=== PATIENT | male | born 1960 | race Caucasian/White ===

== ENCOUNTER 2017-01-03 08:42 | Inpatient (IN) | payer OTHER ==
[2016-12-19 13:10] VITALS: BMI 27.0
--- NOTE | 2016-12-19 13:45 | PAT Medication Instructions ---
Service Date Dec 19, 2016. Current Home Medication List Hydrocodon/Acetaminophen 5MG/300MG (Vicodin (5MG/300MG)), 1-2 TAB PO Q6H PRN for Pain Metoprolol Tartrate (Lopressor) (Lopressor), 50 MG PO BID ["Stomach Pills" ], Unknown Dose Medication Instructions For Your Scheduled Surgery - Hold the following medications the morning of surgery: [OTC "Stomach Pills" ], Unknown Dose - Take the following medications the morning of surgery with a sip of water: Hydrocodon/Acetaminophen 5MG/300MG (Vicodin (5MG/300MG)), 1-2 TAB PO Q6H PRN for Pain (okay to take up to 4 hours prior to surgery if needed) Metoprolol Tartrate (Lopressor) (Lopressor), 50 MG PO BID - Take the following medications as scheduled the night before surgery: Hydrocodon/Acetaminophen 5MG/300MG (Vicodin (5MG/300MG)), 1-2 TAB PO Q6H PRN for Pain Metoprolol Tartrate (Lopressor) (Lopressor), 50 MG PO BID If you have any questions please call us at [phone] (Salina Eric PA-C) or [phone] or [phone]
--- NOTE | 2016-12-19 14:14 | DIAGNOSTIC IMAGING REPORT ---
CHEST PREADMISSION(PA/LAT) CLINICAL HISTORY: PAT preoperative evaluation COMPARISON STUDY: No previous studies for comparison. FINDINGS: The bones soft tissues and hemidiaphragms are normal. The cardiomediastinal silhouette is normal. The lungs are clear. The pulmonary vasculature is normal. IMPRESSION: Negative chest. Electronically signed by: Manuel Coles M.D. 12/19/2016 2:12 PM Dictated Date/Time: 12/19/2016 2:11 PM
[2016-12-19 14:19] LABS: BASO % 0.2 %; BASO ABS # 0.02 K/uL (0-0.2); COMPLETE YES; EOS % 0.8 %; HEMATOCRIT 48.5 % (42-52); IG% 0.2 %; LYMPH % 18.7 %; LYMPH ABS # 1.72 K/uL (1.2-3.4); MEAN CELL VOLUME 91.5 fL (80-100); MEAN CORPUSCULAR HEMOGLOBIN 31.9 pg (25-34); MEAN CORPUSCULAR HGB CONC 34.8 g/dl (32-36); MEAN PLATELET VOLUME 11.1 fL (7.4-10.4); MONO % 7.4 %; NEUT % 72.7 %; PLATELET COUNT 284 K/uL (130-400); WHITE BLOOD COUNT 9.19 K/uL (4.8-10.8)
[2016-12-19 14:27] LABS: URINE APPEARANCE CLEAR (CLEAR); URINE COLOR DK YELLOW; URINE NITRITE NEG (NEG); URINE SPECIFIC GRAVITY 1.034 (1.000-1.030); UROBILINOGEN NEG (NEG)
[2016-12-19 14:29] LABS: MANUAL MICROSCOPIC REQUIRED? NO; REVIEW REQ? NO; URINE BILIRUBIN NEG (NEG)
[2016-12-19 14:38] LABS: PARTIAL THROMBOPLASTIN RATIO 1.1; PROTHROMBIN TIME (PATIENT) 10.4 SECONDS (9.0-12.0)
[2016-12-19 15:35] LABS: BUN/CREATININE RATIO 13.8 (10-20); CALCIUM 9.3 mg/dl (8.5-10.1); CREATININE 0.81 mg/dl (0.60-1.40); POTASSIUM 3.9 mmol/L (3.5-5.1)
--- NOTE | 2017-01-02 12:51 | HISTORY & PHYSICAL EXAMINATION ---
DATE OF ADMISSION: 01/03/2017 Rupert is being preop'd for a posterior approach lumbar spine decompression, fusion, instrumentation and PLIF procedures L5-S1, L4-L5 and L3-L4. He is a delightful gentleman with significant back and lower extremity difficulty, weakness, numbness, tingling with paresthesias to his feet. He has tried an assortment of conservative measures, they have failed. PAST MEDICAL HISTORY: Hypertension. PAST SURGICAL HISTORY: Negative. ALLERGIES: Negative. CURRENT MEDICATIONS: Tramadol, metoprolol. FAMILY HISTORY: Negative for heart disease, stroke, DVT, carcinoma. REVIEW OF SYSTEMS: Positive for joint pain, headaches, and wheezing. Denies chest pain, shortness of breath. No nausea, vomiting. No urgency, frequency, dysuria. Denies any incontinence of bowel and bladder. Denies any HEENT problems. OBJECTIVE: GENERAL: He is 5 feet 8 inches, 175 pounds. He is in no terrible distress. He is alert, oriented and he is comfortable. VITAL SIGNS: Blood pressure 130/80, pulse of 80, respiratory rate 16, temperature 97.4. HEENT: Pupils react to light and accommodation. Ear, nose and throat clear. CARDIAC: Normal S1, no S3. LUNGS: Clear to auscultation. SKIN: No skin rashes, lesions or breakdown. EXTREMITIES: He does have some decreased patellar knee jerk reflexes, loss of motor strength. He is in a leaning forward position, he is in kyphosis. Loss of extension of his spine, loss of normal lordosis of spine as well. He does have pain with straight leg raising, but no balance, equilibrium or upper motor neuron issues. Images reviewed demonstrate severe spondylosis and stenosis with instability and loss of lordosis L3-4, L4-5 lumbar spine. DISPOSITION: Includes surgery for a posterior approach lumbar spine decompression, first the nerve roots; posterior lumbar interbody fusion, L3-4, L4-5 and L5-S1.
[~2017-01-03] VITALS: Ht 172.7 cm; Wt 80.9 kg
[2017-01-03] VITALS (10 sets, daily range): BP systolic 76–164; BP diastolic 81–122; PULSE 68–102; TEMP 36.2–37; O2SAT 94–99; Ht 172.7 cm; Wt 80.9 kg
[~2017-01-03 08:42] MED LIST: CEFAZOLIN 2000 MG/60 ML D5W 60 ML IV SCH; HYDR-3419 PO; LACTATED RINGER'S 1000ML IV SCH; METO50TA16 PO; NSS 1000ML IV SCH; [UNRECOGNIZED DRUG - REMARK]
[2017-01-03] MEDS ORDERED: IBUP-1450 PO (09:19)
[2017-01-03] MEDS ORDERED: MIDAZOLAM HCL 1 MG/ML 2ML VIAL ONE (09:22)
[2017-01-03] MEDS ORDERED: ROCURONIUM BROMIDE 10 MG/ML 5 ML VIAL ONE (09:22)
[2017-01-03] MEDS ORDERED: LIDOCAINE HCL 2% 2 ML VIAL (20MG/ML) ONE (09:22)
[2017-01-03] MEDS ORDERED: PROPOFOL IV EMULSION 10 MG/ML 20 ML VIAL IV ONE (09:22)
[2017-01-03] MEDS ORDERED: FENTANYL CITRATE INJ 50 MCG/1 ML 2 ML VIAL ONE (09:22)
[2017-01-03] MEDS ORDERED: LACTATED RINGER'S 1000ML 1,000 ML IV PRN (09:41)
[2017-01-03] MEDS ORDERED: MoRPHine SULFATE 10 MG/ML CARP/VIAL IV PRN (09:45)
[2017-01-03] MEDS ORDERED: ONDANSETRON INJ 2 MG/ML 2 ML VIAL IV PRN ×2 (09:45→13:30)
[2017-01-03] MEDS ORDERED: KETAMINE HCL INJ 50 MG/ML 10 ML VIAL ONE (10:04)
[2017-01-03] MEDS ORDERED: GELATIN SPONGE SZ 100 ONE ×3 (10:10→12:33)
[2017-01-03] MEDS ORDERED: THROMBIN FOR SOLN 20000 UNIT KIT ONE (10:11)
[2017-01-03] MEDS ORDERED: BACITRACIN 50000 UNIT VIAL ONE (10:11)
[2017-01-03] MEDS ORDERED: BUPIVACAINE/EPINEPHRINE 0.5% MPF 1:200,000 30 ML VIAL ONE (10:11)
[2017-01-03] MEDS ORDERED: VANCOMYCIN HCL 1000MG/20ML VIAL ONE (10:11)
--- NOTE | 2017-01-03 10:13 | History & Physical Bridge Note ---
H&P Re-Evaluation Bridge Note: I have examined the patient, reviewed the History & Physical and in the interval since the performance of the History & Physical I have noted the following changes of clinical significance: No changes noted
[2017-01-03] MEDS ORDERED: DEXAMETHASONE SOD INJ 4 MG/ML VIAL ONE (11:07)
[2017-01-03] MEDS ORDERED: ONDANSETRON INJ 2 MG/ML 2 ML VIAL ONE (11:07)
[2017-01-03] MEDS ORDERED: HYDROmorphone INJ 2 MG/ML SYR/VIAL ONE (11:08)
[2017-01-03] MEDS ORDERED: EpHEDrine SULFATE INJ 50 MG/ML AMP ONE (12:01)
--- NOTE | 2017-01-03 12:59 | DIAGNOSTIC IMAGING REPORT ---
INTRAOPERATIVE RADIOGRAPH CLINICAL HISTORY: L3-S1 spinal fusion. Fluoroscopy time: 11 seconds. FINDINGS: A single spot fluoroscopic view of the lumbar spine is presented. There is evidence of discectomy at L3-L4 and L4-L5. Interpedicular screws are present at L3, L4, and L5. The orthopedic hardware is intact as imaged. IMPRESSION: Intraoperative image from lumbar spinal fusion as above. Electronically signed by: Justin Worthington M.D. 01/03/2017 12:56 PM Dictated Date/Time: 01/03/2017 12:55 PM
[2017-01-03] MEDS ORDERED: SODIUM CHLORIDE 0.9% 1000ML 1,000 ML IV SCH (13:22)
--- NOTE | 2017-01-03 13:25 | [facility] Post Operative Brief Note ---
Immediate Operative Summary Operative Date Jan 03, 2017. Pre-Operative Diagnosis Severe Spondylosis and Stenosis with Instability and Loss of Lordosis; L3-4, L4-5 Lumbar Spine Post-Operative Diagnosis Severe Spondylosis and Stenosis with Instability and Loss of Lordosis; L3-4, L4-5 Lumbar Spine Procedure(s) Performed L3-L4, L4-L5, Posterior Lumbar Interbody. Decompression L3-s1 Surgeon Dr. Dipesh Wright Appliance Fixer Surgeon(s) Benjy Saleem PA-C Estimated Blood Loss 300ML Findings stenosis and deformity Specimens none per surgeon Dr. Dipesh Wright Disposition Recovery Room / PACU
[2017-01-03] MEDS: FENTANYL CITRATE INJ 50 MCG/1 ML 2 ML VIAL IV PRN ×2 (13:28→13:33)
[2017-01-03] MEDS ORDERED: HYDROmorphone HCL 0.5MG/ML 50 ML CASSETTE IV PRN (13:30)
[2017-01-03] MEDS ORDERED: METOCLOPRAMIDE HCL INJ 5 MG/ML 2 ML VIAL IV PRN (13:30)
[2017-01-03] MEDS ORDERED: MAGNESIUM HYDROXIDE SUSP 30 ML UDC PO PRN (13:30)
[2017-01-03] MEDS ORDERED: LORAZEPAM INJ 1 MG in SYRINGE 0 ML IV PRN (13:30)
[2017-01-03] MEDS ORDERED: LORAZEPAM 1 MG TAB PO PRN (13:30)
[2017-01-03] MEDS ORDERED: PROMETHAZINE HCL INJ 12.5 MG in SODIUM CHLORIDE 0.9% 50ML 50 ML IV PRN (13:30)
[2017-01-03] MEDS ORDERED: ACETAMINOPHEN 325 MG TAB PO PRN (13:30)
[2017-01-03] MEDS ORDERED: NALOXONE HCL 0.4 MG/1 ML VIAL/CARP IV PRN (13:30)
[2017-01-03] MEDS ORDERED: HYDROmorphone HCL 0.5MG/ML 50 ML CASSETTE ONE (13:38)
[2017-01-03] MEDS: HYDROmorphone INJ 1 MG/ML SYR IV PRN ×2 (13:53→13:58)
--- NOTE | 2017-01-03 14:05 | Anesthesiology Progress Note ---
Anesthesia Post Op Note Date & Time Jan 03, 2017 at 14:04 Vital Signs Pain Intensity: 5.0 Vital Signs Past 12 Hours Date Time Temp Pulse Resp B/P Pulse Ox O2 Delivery O2 Flow Rate FiO2 01/03/17 13:55 36.3 89 16 140/105 97 Nasal Cannula 3 01/03/17 13:45 85 16 132/101 99 Nasal Cannula 3 01/03/17 13:35 80 16 137/96 100 Mask 10 01/03/17 13:25 36.0 88 16 135/101 100 Mask 10 01/03/17 09:26 37.0 75 18 76/122 97 Room Air 01/03/17 09:25 37.0 76 18 164/121 Notes Mental Status: alert / awake / arousable, participated in evaluation Pt Amnestic to Procedure: Yes Nausea / Vomiting: adequately controlled Pain: adequately controlled Airway Patency, RR, SpO2: stable & adequate BP & HR: stable & adequate Hydration State: stable & adequate Anesthetic Complications: no major complications apparent Pt doing well.
--- NOTE | 2017-01-03 14:27 | OPERATIVE REPORT ---
DATE OF OPERATION: 01/03/2017 PREOPERATIVE DIAGNOSIS: Flat back deformity lumbar spine, lack of lordosis, also severe stenosis of the spine L3 to the sacrum. POSTOPERATIVE DIAGNOSIS: Same. PROCEDURE: 1. Decompression laminectomy L3-L4, L4-L5, L5-S1. 2. Pedicle screw instrumentation bilaterally at L3, L4, L5. 3. Posterior lumbar interbody fusion L3-L4 and L4-L5. 4. Posterior lateral fusion L3, L4, L5. 5. Posterior osteotomy L4-5 bilateral. SURGEON: Dr. Wright. LETTERER: Benjy Saleem PA-C. COMPLICATIONS: Zero. BLOOD LOSS: 300. ANESTHETIC: General. IMPLANTS USED: By the Qalendra. Sponge and needle count correct at the close of the procedure. DESCRIPTION OF PROCEDURE: The patient was taken to the operating room, a general intubated anesthetic provided to the patient, placed prone, scrubbed, prepped and draped sterile. We made a skin incision from L3 to the sacrum dissecting the soft tissue. We took the soft tissue down out over the transverse processes at all levels. We commenced with our decompression, we decompressed the neural elements L3 to the sacrum which is L3-L4, L4-L5, L5-S1, foraminotomies, partial facetectomies actually we also took out the entire facet joints at L4-L5 and L3-L4 bilaterally. We were then able to get pedicle screws safely in at 3, 4, 5 on the right and 3, 4, 5 on the left. We then did osteotomy, we took an osteotome and took out the pars interarticularis and bony elements between 4 and 5 interval bilaterally. This freed up the spine to a modest degree. We then did corrective discectomies at 3-4 and 4-5. We retracted the dura over on the right hand side and shaved out the entire disc. The L4-L5 disc was essentially nonexistent. We prepared this for a true posterior lumbar interbody fusion. We used expandable cages. The cages tapered from 7 mm posteriorly to 10 mm. We expanded him up to 10. We were able to get a few more degrees of lordosis we believed through this process. We then locked down the interval roughly in 20 degrees of lumbar lordosis correcting the overall deformity. We then bone grafted out over the transverse processes as well. We locked down the construct. We irrigated thoroughly with about 500 mL of fluid. We bone grafted, also used vancomycin powder, closed over Hemovac drain. We also then closed the subcuticular layer over some vancomycin powder, and staple gun on the skin. Sterile dressings applied. The patient returned to PACU stable. No apparent complications as stated. Sponge and needle count correct once again. I attest to the content of the Intraoperative Record and any orders documented therein. Any exceptio ns are noted below.
[2017-01-03 16:28] LABS: HEMATOCRIT 43.2 % (42-52)
[2017-01-03] MEDS: SODIUM CHLORIDE 0.9% 1000ML 1,000 ML IV SCH (18:06)
[2017-01-03] MEDS: CEFAZOLIN IV 2,000 MG in DEXTROSE 5% 50ML 50 ML IV SCH (18:07)
[2017-01-03] MEDS: KETOROLAC TROMETHAMINE 30 MG/ML VIAL IV SCH ×2 (18:07→23:29)
[2017-01-03] MEDS: METOPROLOL TARTRATE 50 MG TAB PO SCH (21:47)
[2017-01-04] MEDS: SODIUM CHLORIDE 0.9% 1000ML 1,000 ML IV SCH (01:56)
[2017-01-04] MEDS: CEFAZOLIN IV 2,000 MG in DEXTROSE 5% 50ML 50 ML IV SCH ×2 (01:56→09:46)
[2017-01-04 04:00] VITALS: BP 132/89; PULSE 67; TEMP 36.8; O2SAT 98
[2017-01-04] MEDS ORDERED: BISACODYL 5 MG TABEC PO PRN (06:00)
[2017-01-04] MEDS ORDERED: BISACODYL 10 MG SUPP PR PRN (06:00)
[2017-01-04] MEDS ORDERED: DC PCA ONE (06:00)
[2017-01-04] MEDS ORDERED: HYDROmorphone INJ 1 MG/ML SYR IV PRN (06:01)
[2017-01-04] MEDS ORDERED: OXYCODONE/ACETAMINOPHEN 5-325 TAB PO PRN (06:01)
[2017-01-04] MEDS: KETOROLAC TROMETHAMINE 30 MG/ML VIAL IV SCH ×3 (06:01→18:35)
[2017-01-04] MEDS ORDERED: HYDROmorphone INJ 2 MG/ML SYR/VIAL IV PRN (06:01)
[2017-01-04] MEDS ORDERED: NURSING VERBAL MED ORDER ONE (06:30)
[2017-01-04 07:57] VITALS: BP 130/87; PULSE 68; TEMP 36.8; O2SAT 97
--- NOTE | 2017-01-04 08:04 | Anesthesiology Progress Note ---
Anesthesia Post Op Note Date & Time Jan 04, 2017 at 08:03 Vital Signs Pain Intensity: 3.0 Vital Signs Past 12 Hours Date Time Temp Pulse Resp B/P Pulse Ox O2 Delivery O2 Flow Rate FiO2 01/04/17 07:57 36.8 68 16 130/87 97 Room Air 01/04/17 07:22 Room Air 01/04/17 04:00 36.8 67 18 132/89 98 Room Air 01/03/17 23:55 36.7 68 18 118/87 99 Room Air 01/03/17 23:25 Room Air 01/03/17 20:05 36.3 88 18 132/93 95 Room Air Notes Mental Status: alert / awake / arousable, participated in evaluation Pt Amnestic to Procedure: Yes Nausea / Vomiting: adequately controlled Pain: adequately controlled Airway Patency, RR, SpO2: stable & adequate BP & HR: stable & adequate Hydration State: stable & adequate Anesthetic Complications: no major complications apparent
[2017-01-04] MEDS: POLYETHYLENE (MIRALAX) 17 GM PACK PO SCH (08:48)
[2017-01-04 08:49] VITALS: BP 132/92; PULSE 86
[2017-01-04] MEDS: METOPROLOL TARTRATE 50 MG TAB PO SCH ×2 (08:49→21:24)
[2017-01-04] MEDS: OXYCODONE/ACETAMINOPHEN 5-325 TAB PO PRN ×3 (08:52→23:21)
[2017-01-04 11:13] VITALS: BP 146/105; PULSE 69; O2SAT 97
--- NOTE | 2017-01-04 12:21 | ORTHOPEDICS PROGRESS NOTE ---
DATE: 01/04/2017 SUBJECTIVE: Moderate complaints of pain. No shortness of breath or chest pain. No confusion. Has some abdominal distention, lower extremity difficulty and back pain. OBJECTIVE: Vital signs are stable, hematocrit 43.2, hemoglobin 14.1 and oral temperature is 36.8. ASSESSMENT: Status post major reconstructive spine surgery yesterday midday; so he is now about 20 hours postsurgical. We will get him up and ambulatory today, hopefully get him changed ____ around tomorrow and discharge home; optimistically for tomorrow the .
[2017-01-04 15:05] VITALS: BP 129/87; PULSE 74; TEMP 36.9; O2SAT 97
[2017-01-04 23:11] VITALS: BP 121/77; PULSE 82; TEMP 37; O2SAT 97
[2017-01-05 06:04] VITALS: BP_SYST 152; BP_SYST 160; BP_DIAS 114; BP_DIAS 115; PULSE 88; TEMP 38.5; O2SAT 95
[2017-01-05] MEDS: OXYCODONE/ACETAMINOPHEN 5-325 TAB PO PRN ×2 (06:08→13:36)
[2017-01-05 06:35] VITALS: BP 140/93
[2017-01-05 07:01] VITALS: BP 140/93; PULSE 107; TEMP 36.9; O2SAT 92
[2017-01-05] MEDS: POLYETHYLENE (MIRALAX) 17 GM PACK PO SCH (07:52)
[2017-01-05] MEDS: METOPROLOL TARTRATE 50 MG TAB PO SCH (08:29)
--- NOTE | 2017-01-05 08:48 | Discharge Instructions ---
Discharge Instructions Date of Service Jan 05, 2017. Admission Reason for Admission: Lumbar Spinal Stenosis Discharge Discharge Diagnosis / Problem: stenosis Discharge Goals Goal(s): Improve function Activity Recommendations Activity Limitations: as noted below Lifting Limitations: until after follow-up appointment Exercise/Sports Limitations: until after follow-up appointment May Resume Sexual Activity: after follow-up appointment Shower/Bathe: keep incision dry Driving or Machine Use: home, rest, recover . Current Hospital Diet Patient's current hospital diet: Regular Diet Discharge Diet Recommended Diet: Regular Diet Procedures Procedures Performed: L3-L4, L4-L5, Posterior Lumbar Interbody. Decompression L3-s1 Pending Studies Studies pending at discharge: no Medical Emergencies . Who to Call and When: Medical Emergencies: If at any time you feel your situation is an emergency, please call 911 immediately. . Non-Emergent Contact Non-Emergency issues call your: Surgeon Call Non-Emergent contact if: your pain is concerning you, wound has increased pain, you have any medication questions . "Provider Documentation" section prepared by Dipesh Wright. . VTE Core Measure Inpt VTE Proph given/why not?: Treatment not indicated
--- NOTE | 2017-01-05 08:50 | Discharge Instructions ---
Discharge Instructions Date of Service Jan 05, 2017. Admission Reason for Admission: Lumbar Spinal Stenosis Discharge Discharge Diagnosis / Problem: stenosis Discharge Goals Goal(s): Improve function Activity Recommendations Activity Limitations: as noted below Lifting Limitations: until after follow-up appointment Exercise/Sports Limitations: until after follow-up appointment May Resume Sexual Activity: after follow-up appointment Shower/Bathe: keep incision dry . Instructions / Follow-Up Instructions / Follow-Up MEDICATIONS: Please take your prescriptions as instructed at your pre-op appointment. SPECIAL CARE: The following information is intended to answer some of the common questions and concerns regarding your surgery. Each patient is an individual and receives individual counselling throughout the course of treatment, from diagnosis to surgery all the way through recovery. What follows is not an exhaustive list, but should be a useful guide to some of the common questions and concerns patients have regarding their surgeries. These are not provided to keep you from calling us; rather, they give you something accurate and concrete to reference as you recover from your procedure. If you need us, we are available to you. As always, if you are not sure about something, call us at [phone]. MEDICAL EMERGENCIES: For these conditions, call 911 or go to your local hospital-based Emergency Department - not [facility] or equivalent. * Paralysis * Severe chest pain or difficulty breathing * Swelling or redness of either leg Spine procedures can be rather complex and though complications are rare, they do occur. In such cases, effective advice regarding emergency situations cannot always be addressed over the telephone. You may be referred to the emergency department for more effective management of your problem. Activity Limitations: It is important to give your body time to heal, so please limit your activities : * In general, don't do anything that moves your spine too much. You should avoid contact sports, twisting or heavy lifting while you recover. * 5-10 pounds is all you should attempt to lift. * You should not plan on driving for approximately 3 weeks and you should avoid traveling more than 30-45 minutes at a time. Longer trips should be broken down with walking breaks spaced appropriately. * Physical therapy is not usually required. * Walking and good posture practices will help you recover and regain your function. * Avoid straining or sudden changes in position. * In general, the goal is to take it easy and recover. Don't cause any new problems. Just relax. Showers: * Do not take a bath, use a Jacuzzi or hot tub or otherwise submerge your incision. * It is usually safe to take a shower 4-5 days after your surgery. * Your incision does not require any special creams or ointments. * Simply clean it with soap and water, dry and re-dress with a clean bandage afterwards. Incision: * Keep incision clean, dry and protected until your first follow-up appointment. * Some amount of drainage and redness is normal. Any drainage should be fairly clear and not have a foul odor. * If you feel anything is wrong or you have excessive drainage, please call us. * Your stitches and brynn will be removed 10-14 days after your surgery. At the time of your first post-op visit. * Neck surgeries are typically closed with a suture underneath the skin. The steri-strips over the incision should be maintained until we see you in the office. Bracing: * You may be provided with a back or neck brace to encourage good posture and prevent injury. It will remind you not to do too much as you heal and will alert others to the fact that you have had a surgery. * Back braces may be removed for showers and when you are resting at home. They must be worn when you are walking around for any period of time or for travel. * For neck surgery, you will likely be provided with two cervical collars. The soft collar (Pawlet or foam rubber) is worn most commonly throughout the day and while sleeping. The plastic collar (provided at the hospital) is for showering/bathing. * Except while eating, collars should remain in place. More specifically, bracing is provided for a purpose and should be worn. * Please obtain your brace or collars prior to your operation and bring them to the hospital with you on the day of surgery. * You should also bring your collars to your post-op appointment with Dr. Wright. You should always take good care of your body and practice healthy habits, especially following surgery. You should: * Follow your doctor's treatment plan * Sit and stand properly with good posture (ears over shoulders, shoulders over hips) Don't slouch * Learn to lift correctly * Exercise regularly (low-impact aerobic exercise is especially good, but check with your doctor first) * Generally, be up and walking for 5-10 minutes at a time at least 3-4 times per day from the day you get home * Increasing walking to tolerance until you can walk for 20-30 minutes at a time * Attain and maintain a healthy body weight * Eat healthy foods ( a well-balanced, low-fat diet rich in fruits and vegetables) and get enough calcium * Avoid excessive use of alcohol When to call our office - If you notice any of the following: * Increased pain not relieve by pain medicine * Fevers greater then 100 degrees F, chills or flu symptoms * Increased redness around incision * Drainage from the incision that is not clear * Any foul smelling drainage * Swelling or fluid collection beneath the skin Miscellaneous: * In the hospital, you may be given a walker or cane for support while walking. These are temporary needs and are intended to prevent injuries due to falls. You may discontinue them when you feel strong and steady enough on your feet. * Sleep in a comfortable position. We find that many patients find a lounge chair or recliner with several pillows to be beneficial in the early post-operative period. * The support stockings should be used for 7-10 days and may be discontinued when you are back to walking more and conducting usual household activities. No problem is insignificant. We are here to help you and get you well. Contact us at [phone]. Definitions: Foraminotomy: If part of the disc or a bone spur (osteophyte) is pressing on a nerve as it leaves the vertebra (through an exit called the foramen), a foraminotomy may be done. Otomy means "to make an opening." A foraminotomy is making the opening of the foramen larger, so the nerve can exit without being compressed. Laminotomy: Similar to the foraminotomy, a laminotomy makes a larger opening, this time in your bony plate protecting your spinal canal and spinal cord (the lamina). The lamina may be pressing on your nerve, so the surgeon may make more room for the nerves using a laminotomy. Laminectomy: Sometimes, a laminotomy is not sufficient. The surgeon may need to remove all or part of the lamina. This procedure is called a laminectomy. This can often be done at many levels without any harmful effects. Current Hospital Diet Patient's current hospital diet: Regular Diet Discharge Diet Recommended Diet: Regular Diet Procedures Procedures Performed: L3-L4, L4-L5, Posterior Lumbar Interbody. Decompression L3-s1 Pending Studies Studies pending at discharge: no Medical Emergencies . Who to Call and When: Medical Emergencies: If at any time you feel your situation is an emergency, please call 911 immediately. . Non-Emergent Contact Non-Emergency issues call your: Surgeon Call Non-Emergent contact if: your pain is worsening, you have any medication questions . "Provider Documentation" section prepared by Dipesh Wright. . VTE Core Measure Inpt VTE Proph given/why not?: Treatment not indicated
--- NOTE | 2017-01-05 09:11 | DISCHARGE SUMMARY ---
DATE OF DISCHARGE: 01/05/2017. SUBJECTIVE: Moderate complaints of pain, no chest pain, shortness of breath. No confusion. OBJECTIVE: Vital signs stable, alert, oriented. ASSESSMENT: Spinal reconstructive surgery. DISPOSITION: He is up ambulatory this morning. Will discharge him home. Instruction precautions provided. Prescriptions on his chart. Careful bending, stooping, lifting. He is just really home resting, recovering. We should see him back in the office in 2 weeks. Keep his wound clean, dry, and covered at all times.
[2017-01-05 09:39] VITALS: BP 140/93; PULSE 107; TEMP 36.9; O2SAT 92
== END 2017-01-05 15:52 | disposition home or self-care (01) | DRG 460 ==
LOC: ENRESERVDT → ENRESERVTM → C.ACU 08:42 → C.3E 15:01
PROVIDERS: ADMIT Orthopaedic Surgery Orthopaedic Surgery of the Spine; ATTEND Orthopaedic Surgery Orthopaedic Surgery of the Spine
PROC: 0SG10AJ Fusion of 2 or more Lumbar Vertebral Joints with Interbody Fusion Device, Posterior Approach, Anterior Column, Open Approach (ICD-10-PCS; principal; 2017-01-03 10:30)
PROC: 0SG1071 Fusion of 2 or more Lumbar Vertebral Joints with Autologous Tissue Substitute, Posterior Approach, Posterior Column, Open Approach (ICD-10-PCS; principal; 2017-01-03 10:30)
PROC: 0ST20ZZ Resection of Lumbar Vertebral Disc, Open Approach (ICD-10-PCS; principal; 2017-01-03 10:30)
PROC: 01NB0ZZ Release Lumbar Nerve, Open Approach (ICD-10-PCS; principal; 2017-01-03 10:30)
DX: M48.06 Spinal stenosis, lumbar region (principal); M48.07 Spinal stenosis, lumbosacral region; M40.209 Unspecified kyphosis, site unspecified; I10 Essential (primary) hypertension